=== PATIENT | female | born 1995 | race Caucasian/White ===

== ENCOUNTER 2017-03-20 17:17 | Emergency (ER) | payer BC ==
[2017-03-20 17:39] VITALS: BP 153/80
--- NOTE | 2017-03-20 19:13 | UC ---
Raman Sheldon Gabriel, scribed for Severiano Low MD on 03/20/17 at 1833 . Respiratory Complaint HPI - HPI Summary HPI Summary: This patient is a 22 year old F presenting to [facility] with a chief complaint of pain on inspiration that began yesterday. The patient rates the pain 6/10 in severity. Patient reports fever, sharp pain in her lower back when lying, chills , and SOB. Patient denies rhinorrhea, cough, diarrhea, LE pain and edema. On 03/18 patient was experiencing vomiting and ABD pain that resolved the next day. Patient denies any chance of and is on oral BC. - History of Current Complaint Chief Complaint: UCRespiratory Stated Complaint: BACK PAIN, AND CHEST CONGESTION Time Seen by Provider: 03/20/17 18:21 Hx Obtained From: Patient Hx Last Menstrual Period: NOW Onset/Duration: Still Present Timing: Constant Severity Initially: Moderate Severity Currently: Moderate Pain Intensity: 6 Pain Scale Used: 0-10 Numeric Associated Signs And Symptoms: Positive: Fever, Chills, Pleuritic Chest Pain. Negative: Calf Pain, Edema - Allergies/Home Medications Allergies/Adverse Reactions: Allergies Allergy/AdvReac Type Severity Reaction Status Date / Time No Known Allergies Allergy Verified 03/20/17 17:39 Home Medications: Home Medications Control* 1 tab PO DAILY 03/20/17 [History Confirmed 03/20/17] Multiple Vitamins W/ Minerals [Multivitamin Adults] 1 tab PO DAILY 03/20/17 [ History Confirmed 03/20/17] [id number]-[id number] [Theraflu Cold & Cough] 1 meggan PO ONCE PRN 03/20/17 [History Confirmed 03/20/17] Probiotic Product [Probiotic Daily] 1 cap PO DAILY 03/20/17 [History Confirmed 03/20/17] PMH/Surg Hx/FS Hx/Imm Hx Previously Healthy: Yes - Surgical History Surgical History: None - Family History Known Family History: Positive: Unknown - Patient states "there are problem some but I don't know them" - Social History Lives: With Family Alcohol Use: None Substance Use Type: None Smoking Status (MU): Never Smoked Tobacco Review of Systems Constitutional: Fever, Chills Respiratory: Shortness Of Breath Cardiovascular: Chest Pain - on inspiration Musculoskeletal: Other: - back pain when lying All Other Systems Reviewed And Are Negative: Yes Physical Exam Triage Information Reviewed: Yes Appearance: Well-Appearing, No Pain Distress Vital Signs: Initial Vital Signs Temp 98.3 F 03/20/17 17:34 Pulse 110 03/20/17 17:34 Resp 18 03/20/17 17:34 BP 153/80 03/20/17 17:34 Pulse Ox 98 03/20/17 17:34 Vital Signs Reviewed: Yes Eyes: Positive: Conjunctiva Clear ENT: Positive: Pharynx normal Neck: Positive: Nontender Respiratory: Positive: Lungs clear, Normal breath sounds, Other: Cardiovascular: Positive: No Murmur, Tachycardia Abdomen Description: Positive: Other: - tender right upper quadrant of abdomen Musculoskeletal: Positive: No Edema Neurological: Positive: Alert Psychological: Positive: Normal Response To Family, Age Appropriate Behavior Skin Exam: Normal UC Diagnostic Evaluation - Laboratory O2 Sat by Pulse Oximetry: 98 Respiratory Course/Dx - Course Course Of Treatment: 22 yr old with pleuritic chest pain and also right upper quadrant tenderness. She signed out AMA refused ambulance. The patient was told she has the possibility of blood clot to lungs being on control without cough and cold symptoms and having CP on breathing with SOB. She was told she needed to go to the ER for evaluation of her abdomen as well as the SOB and Pleuritic chest pain. She signed out AMA and plans to go with mother in law by private care. Risk of delay care, , disability, worse pain and blood clot among other things understood by her. - Differential Dx/Diagnosis Provider Diagnoses: Pleuritic chest pain. SOB. Right upper abdominal pain. hypertension Discharge - Discharge Plan Condition: Stable Disposition: AGAINST MEDICAL ADVICE Referrals: Margo Miles NOC TECHNICIAN [Primary Care Provider] - The documentation as recorded by the Raman melgar Gabriel accurately reflects the service I personally performed and the decisions made by me, Severiano Low MD.
== END 2017-03-20 18:40 | disposition left against medical advice (07) ==
LOC: UCEAST 17:17
DX: R07.81 Pleurodynia (principal); R06.02 Shortness of breath; R10.11 Right upper quadrant pain; R50.9 Fever, unspecified; I10 Essential (primary) hypertension
CPT/HCPCS: 99212; G0463

== ENCOUNTER 2017-03-20 19:01 | Emergency (ER) | payer BC ==
[2017-03-20] MEDS ORDERED: NS 0.9% 1000 ML* 1,000 ML IV SCH (21:30)
--- NOTE | 2017-03-20 21:45 | RAD ---
INDICATION: Pleuritic chest pain COMPARISON: None TECHNIQUE: PA and lateral dual-energy views were obtained. FINDINGS: Bones/Soft Tissues: There are no acute bony findings. Cardiomediastinal: The cardiomediastinal silhouette is normal. Lungs: There are no infiltrates. Pleura: There are no pleural effusions. Other: None IMPRESSION: NO ACTIVE DISEASE.
[2017-03-20 22:01] LABS: ABS Basophils 0.1 10^3/ul (0-0.2); ABS Eosinophils 0 10^3/ul (0-0.6); ABS Lymphocytes 1.4 10^3/ul (1.0-4.8); ABS Monocytes 1.3 10^3/ul (0-0.8); ABS Nucleated RBC 0 10^3/ul; Eosinophil % 0.2 % (0-6); Hematocrit 43 % (35-47); Hemoglobin 14.6 g/dl (12.0-16.0); Lymphocyte % 7.8 % (25-47); Mean Corpuscular HGB Conc 34 g/dl (31-36); Mean Corpuscular Hemoglobin 29 pg (27-31); Mean Corpuscular Volume 87 fL (80-97); Mean Platelet Volume 9 um3 (7.4-10.4); Nucleated Red Blood Cells % 0; Platelet Count 243 10^3/ul (150-450); Red Blood Count 4.97 10^6/ul (4.0-5.4); Red Cell Distribution Width 14 % (10.5-15); White Blood Count 17.7 10^3/ul (3.5-10.8)
[2017-03-20 22:09] LABS: Urine Appearance Cloudy; Urine Blood Negative (Negative); Urine Color Amber; Urine Ketones 2+ (Negative); Urine Protein 2+(100 mg/dL) (Negative); Urine Specific Gravity 1.028 (1.010-1.030); Urine Urobilinogen Positive (Negative)
[2017-03-20 22:15] LABS: EGFR Non-African American 82.2 (>60)
[2017-03-20] MEDS ORDERED: Iohexol 350* (CONTRAST) 500 ML MDV IV ONE (22:45)
[2017-03-20 23:16] VITALS: BP 124/73
--- NOTE | 2017-04-05 01:18 | ED ---
Adrienne Sheldon Emily, scribed for Tray Prieto MD on 03/20/17 at 2130 . Abdominal Pain/Female - HPI Summary HPI Summary: This patient is a 22 year old F presenting to [facility] accompanied by family with a chief complaint of bilateral flank pain that began 3 days ago. The patient rates the pain 4/10 in severity. Symptoms aggravated by deep breathing. Symptoms alleviated by nothing. Patient reports constipation, vomiting, and nausea. Patient denies cough, fever, dysuria, and hematuria. Medications reviewed. Allergies reviewed. Pt was referred to [facility] by urgent care, left AMA , and drove herself here. - History of Current Complaint Chief Complaint: EDFlankPain Stated Complaint: BACK PAIN/SENT FROM [facility] Hx Obtained From: Patient Hx Last Menstrual Period: NOW ?: No Onset/Duration: Sudden Onset, Lasting Days, Still Present Timing: Constant Severity Initially: Moderate Severity Currently: Moderate Pain Intensity: 4 Pain Scale Used: 0-10 Numeric Location: Flank Radiates: Yes Radiates to: Back Aggravating Factor(s): Nothing Alleviating Factor(s): Nothing Associated Signs and Symptoms: Positive: Nausea, Vomiting, Other: - Positive constipation. Negative: Fever, Cough, Urinary Symptoms Allergies/Adverse Reactions: Allergies Allergy/AdvReac Type Severity Reaction Status Date / Time No Known Allergies Allergy Verified 03/20/17 17:39 PMH/Surg Hx/FS Hx/Imm Hx Endocrine/Hematology History: Denies: Hx Diabetes Cardiovascular History: Denies: Hx Hypertension Opthamlomology History: Denies: Hx Legally Blind EENT History: Denies: Hx Deafness Infectious Disease History: No Infectious Disease History: Denies: Traveled Outside the [place] in Last 30 Days - Family History Known Family History: Positive: Unknown - Social History Occupation: Student Lives: Alone Alcohol Use: None Substance Use Type: Reports: None Smoking Status (MU): Never Smoked Tobacco Review of Systems Negative: Fever Negative: Cough Positive: Abdominal Pain, Vomiting, Nausea, Other - Positive constipation Negative: dysuria, hematuria All Other Systems Reviewed And Are Negative: Yes Physical Exam - Summary Physical Exam Summary: Appearance: Well-appearing, Well-nourished Skin: Warm, Dry, No rash Eyes: Normal, PERRL, EOMI, sclera anicteric ENT: Normal Neck: Supple, nontender Respiratory: Clear to auscultation Cardiovascular: S1, S2, no murmur, no rub, no gallop Abdomen: Soft, nontender, no organomegaly Bowel sounds: Present Musculoskeletal: Normal, Strength/ROM Intact, no edema, pulses symmetrical Neurological: Normal, A&Ox3, cranial nerves II-XII WNL, follows commands, gait not tested, sensation intact to pin and light touch Psychiatric: affect normal, behavior appropriate, dressed appropriately, judgment intact Triage Information Reviewed: Yes Vital Signs On Initial Exam: Initial Vitals Temp Pulse Resp BP Pulse Ox 98.3 F 112 16 146/90 97 03/20/17 19:25 03/20/17 19:25 03/20/17 19:25 03/20/17 19:25 03/20/17 19:25 Vital Signs Reviewed: Yes Diagnostics - Vital Signs Vital Signs Temp Pulse Resp BP Pulse Ox 03/20/17 19:25 98.3 F 112 16 146/90 97 - Laboratory Result Diagrams: 03/20/17 21:49 03/20/17 21:49 Lab Statement: Any lab studies that have been ordered have been reviewed, and results considered in the medical decision making process. Abdominal Pain Fem Course/Dx - Course Course Of Treatment: This patient is a 22 year old F presenting to [facility] accompanied by family with a chief complaint of bilateral flank pain that began 3 days ago. Symptoms aggravated by deep breaths. Physical Exam Findings. Nml. Pt refused a CT angio offered due to elevated D Dimer. Bloodwork and UA obtained. In the ED course the patient was given contrast and fluids. Patient will be discharged with prescription for Cipro and follow up from PCP. The patient is agreeable with this plan. - Diagnoses Provider Diagnoses: Kidney infection Discharge - Discharge Plan Condition: Fair Disposition: HOME Prescriptions: Ciprofloxacin HCl [Cipro 500 MG TAB] 500 mg PO BID 7 Days #14 tab Patient Education Materials: Kidney Infection (ED) Referrals: Margo Miles, INSPECT[facility] [Primary Care Provider] - The documentation as recorded by the Adrienne melgar Emily accurately reflects the service I personally performed and the decisions made by me, Tray Prieto MD.
== END 2017-03-20 23:17 | disposition home or self-care (01) ==
LOC: ED 19:01
DX: N15.9 Renal tubulo-interstitial disease, unspecified (principal); R11.2 Nausea with vomiting, unspecified; R10.84 Generalized abdominal pain
CPT/HCPCS: 36415; 71046; 80053; 81003; 81015; 85025; 85379; 87502; 99283